=== PATIENT | female | born 2000 | race Two or more races ===

== ENCOUNTER 2024-07-21 00:56 | Emergency (ER) | payer MEDICAID, SELFPAY ==
[2024-07-21 00:56] VITALS: BMI 27.3
[2024-07-21 01:06] VITALS: BP 122/82; PULSE 92; RESP 16; TEMP 36.6; O2SAT 99
--- NOTE | 2024-07-21 01:14 | XR_ITS ---
Examination: PA lateral chest 2 views TECHNIQUE: Upright PA lateral chest 2 views Exam date and time: July 21, 2024 0123 hours INDICATIONS: Coughing beginning 3 weeks ago. FINDINGS: Normal heart size Lungs are clear. The osseous structures are intact IMPRESSION: No active disease
--- NOTE | 2024-07-21 01:14 | PD.EDURI ---
Upper Respiratory Inf. RME/HPI General Chief Complaint: Flu Like Symptoms Stated Complaint: COUGH, SIDE PAIN Time Seen by Provider: 07/21/24 01:12 Source: patient Arrival date/time: 07/21/24 00:56 23-year-old female presents emergency department complaining of cough and left rib pain that is been ongoing for 3 weeks. Mode of arrival: ambulatory Limitations: no limitations Related Data Previous Rx's ?Medication ?Instructions ?Recorded benzonatate 100 mg capsule 100 mg PO BID #20 caps 07/21/24 Allergies Allergy/AdvReac Type Severity Reaction Status Date / Time NKA Allergy Unknown Uncoded 07/21/24 00:58 Review of Systems Review of Systems Systems Reviewed: All systems reviewed, normal except as documented Constitutional Constitutional: Reports system reviewed and no additional complaints, except as documented, Denies body ache(s), Denies chills and Denies fever(s) Eyes Eyes: Reports system reviewed and no additional complaints, except as documented and Denies change in vision ENT Ears, Nose, Mouth, and Throat: Reports system reviewed and no additional complaints, except as documented, Denies disequilibrium, Denies dizziness, Denies sore throat and Denies vertigo Cardiovascular Cardiovascular: Reports system reviewed and no additional complaints, except as documented, Denies chest pain and Denies dyspnea Respiratory Respiratory: Reports system reviewed and no additional complaints, except as documented, Denies chest congestion, Reports cough and Denies dyspnea Gastrointestinal Gastrointestinal: Reports system reviewed and no additional complaints, except as documented, Denies abdominal pain, Denies nausea and Denies vomiting Musculoskeletal Musculoskeletal: Reports system reviewed and no additional complaints, except as documented, Denies abnormal gait, Denies arthralgias, Reports back pain and Reports other (Side pain) Integumentary/Breasts Skin/Breast: Reports system reviewed and no additional complaints, except as documented, Denies erythema, Denies rash and Denies wounds Neurologic Neurologic: Reports system reviewed and no additional complaints, except as documented, Denies abnormal gait, Denies disequilibrium, Denies dizziness and Denies vertigo Past Medical History Social History SMOKING STATUS: Never smoker ED Exam General Limitations: Present no limitations General appearance: Present alert and in no apparent distress Head Head exam: Present atraumatic Eye Eye exam: Present normal appearance, PERRL and EOMI ENT ENT exam: Present normal exam, normal oropharynx and mucous membranes moist Neck Neck exam: Present normal inspection, full ROM and trachea midline Chest Chest inspection: Present normal inspection and symmetric chest wall rise Respiratory Respiratory exam: Present normal lung sounds bilaterally Cardiovascular Cardiovascular exam: Present regular rate, normal rhythm and normal heart sounds Abdominal Exam Abdominal exam: Present soft and normal bowel sounds Extremities Exam Extremities exam: Present normal inspection and full ROM Back Exam Back exam: Present normal inspection and full ROM Neurological Exam Neurological exam: Present alert, oriented X3 and CN II-XII intact Psychiatric Psychiatric exam: Present normal affect and normal mood Skin Skin exam: Present warm, dry, intact and normal color Course Quality Measures none Orders Category Date Time Status Bedside Influenza A&B Antigen Test NOW Care 07/21/24 01:14 Completed XR chest 2V Stat Exams 07/21/24 01:14 Taken Vital Signs Vital signs: Vital Signs Temperature 98 F 07/21/24 01:06 Pulse Rate 92 07/21/24 01:06 Respiratory Rate 16 07/21/24 01:06 Blood Pressure 122/82 07/21/24 01:06 Pulse Oximetry (%) 99 07/21/24 01:06 Oxygen Delivery Method Room Air 07/21/24 01:06 99% room air within normal limits Upper Respiratory Infection MDM Narrative MDM Narrative:: 23-year-old female presents emergency department complaining of cough and left rib pain that is been ongoing for 3 weeks. Chest x-ray was unremarkable for any pneumonic infiltrates based on my interpretation. Influenza negative. Patient appears nontoxic and is hemodynamically stable. No adventitious lung sounds on auscultation. Vital signs within normal limits. Patient discharged to follow-up with primary care provider return to emergency department for any worsening symptoms or as needed. Patient data External records reviewed:: None Clinical information provided by:: patient and family Social determinants that could affect healthcare access:: none Patient has the following chronic illnesses:: None How is presenting disease/condition affected by chronic disease/condition?: no chronic disease Evaluation data The following diagnostics were reviewed and interpreted by me:: radiology exam(s) Lab and/or radiology exams considered but not ordered:: Ordered Interpretation Summary: Interpreted by me Medications / Prescriptions Medications or Prescriptions considered but not ordered:: N/A Medication administrations:: N/A Consultations Consultation(s) initiated? (list below): No Diagnosis Upper Respiratory Differential Diagnosis: upper respiratory infection, otitis media, sinusitis, viral infection, bronchitis, influenza and pharyngitis Most likely diagnosis given after review of the tests above:: Viral infection Admission Indicated Admission indicated?: not indicated Admission Request Was there a request for admission?: No Disposition Plan Disposition Plan: Discharge Discharge Attestation Discharge Attestation: The patient and all family members were given an opportunity to ask questions and understood the discharge instructions. Discharge instructions specifically effects, indications for sooner follow up or return to the emergency department, and the expected course of current diagnosis. Patient condition: Stable Discharge Plan Plan Patient Disposition: HOME (Self Care) Disposition Comment: Stable Prescriptions/Referrals Prescriptions/Med Rec: New benzonatate 100 mg capsule 100 mg PO BID Qty: 20 0RF Problem List Clinical Impression: Viral infection Patient/Caregiver Discharge Instructions Discharge Activity: activity as tolerated Education Materials: ED Viral Syndrome (Adult) Additional Instructions: Drink plenty of fluids and get plenty of rest. Take cough medication as needed. Follow-up with primary care provider in 2 to 3 days. Return to emergency department for any worsening symptoms or as needed. Print Language: Tajik Stand Alone Forms: Tanesha Award Info., Patient Portal Info Letter PA/YOBANY Supervising Physician MICHAEL/YOBANY Supervising Physician: Dr. Adrian
== END 2024-07-21 01:46 | disposition home or self-care (01) ==
LOC: SERX 01:36
PROVIDERS: Emergency Provider Emergency Medicine; PCP Nurse Practitioner Family
DX: B34.9 Viral infection, unspecified (principal)
CPT/HCPCS: 71046; 87400; 99283

== ENCOUNTER 2024-07-25 21:07 | Emergency (ER) | payer MEDICAID, SELFPAY ==
[2024-07-25 21:08] VITALS: BMI 27.3
[2024-07-25 21:18] VITALS: BP 131/84; PULSE 97; RESP 18; TEMP 37.1; O2SAT 99
--- NOTE | 2024-07-25 21:21 | XR_ITS ---
Examination: Ribs, left, with PA chest, 4 views Technique: Chest PA, RIBS AP, RPO, LPO, AP coned lower ribs 5 views Exam date and time: July 25, 2024 2137 hrs. Indications: Coughing 3 weeks ago with onset left rib pain Findings: Normal heart size No pneumothorax No acute rib fractures Impression: No pneumothorax pulmonary contusion or hemothorax No acute rib fractures
--- NOTE | 2024-07-25 21:21 | EDNOTE_ITS ---
ED General RME/HPI General Chief complaint: Abdominal Pain Stated complaint: LUQ PAIN X 1WK Time Seen by Provider: 07/25/24 21:21 Arrival date/time: 07/25/24 21:07 Limitations: no limitations RME / HPI RME / HPI narrative: 23yof presents to ED for left-sided rib pain x 1 week. Denies preceding injury or trauma. Patient reports persistent cough the past 3 weeks, now improving. No fever, shortness of breath, nausea/vomiting, dizziness or syncope reported. No medications or treatment since symptom onset Related Data Previous Rx's ?Medication ?Instructions ?Recorded ibuprofen 600 mg tablet 600 mg PO Q6H PRN pain #30 tabs 07/25/24 lidocaine 5 % topical patch 1 patch topical QDAY PRN pain #15 07/25/24 ea cephalexin 500 mg capsule 500 mg PO Q8H #20 caps 07/28/24 Allergies Allergy/AdvReac Type Severity Reaction Status Date / Time No Known Allergies Allergy Verified 07/28/24 08:19 Review of Systems Review of Systems Systems Reviewed: All systems reviewed, normal except as documented Constitutional Constitutional: Denies chills and Denies fever(s) ENT Ears, Nose, Mouth, and Throat: Reports nasal congestion and Denies vertigo Cardiovascular Cardiovascular: Denies chest pain, Denies dyspnea and Denies syncope Respiratory Respiratory: Reports cough, Denies dyspnea, Reports pain on inspiration and Reports pain with cough Gastrointestinal Gastrointestinal: Denies abdominal pain, Denies nausea and Denies vomiting Musculoskeletal Comments: Positive for rib pain Neurologic Neurologic: Denies syncope and Denies vertigo Past Medical History Social History SMOKING STATUS: Never smoker SUBSTANCE USE: does not use ALCOHOL: Never Past Medical History Comments PMH COMMENT: ED Exam General Limitations: Present no limitations General appearance: Present alert and in no apparent distress Head Head exam: Present atraumatic and normocephalic Eye Eye exam: Present normal appearance, PERRL and EOMI ENT ENT exam: Present normal exam and mucous membranes moist Neck Neck exam: Present normal inspection and full ROM Chest Chest inspection: Present symmetric chest wall rise and tenderness (left lower anterior ribs) Respiratory Respiratory exam: Present normal lung sounds bilaterally and other (No wheezing, rales or rhonchi); Absent respiratory distress Cardiovascular Cardiovascular exam: Present regular rate and normal rhythm Abdominal Exam Abdominal exam: Present soft; Absent distention, tenderness, guarding or rebound Extremities Exam Extremities exam: Present normal inspection and full ROM Back Exam Back exam: Absent paraspinal tenderness or vertebral tenderness Neurological Exam Neurological exam: Present alert and oriented X3 Psychiatric Psychiatric exam: Present normal affect and normal mood Skin Skin exam: Present warm, dry, intact and normal color Course Quality Measures none Orders Category Date Time Status XR ribs LT min 3V w CXR1V Stat Exams 07/25/24 21:21 Completed Ibuprofen Tab [Motrin Tab] Med 07/25/24 21:22 Discontinued 600 mg PO X1 ONE Lidocaine 5% Patch Med 07/25/24 21:22 Discontinued 1 patch TOP X1 ONE Vital Signs Vital signs: Vital Signs Temperature 98.7 F 07/25/24 21:18 Pulse Rate 97 07/25/24 21:18 Respiratory Rate 18 07/25/24 21:18 Blood Pressure 131/84 H 07/25/24 21:18 Pulse Oximetry (%) 99 07/25/24 21:18 Oxygen Delivery Method Room Air 07/25/24 21:18 [facility] Patient data External records reviewed:: [facility] previous records (07/21/24 ED visit for viral infection) Clinical information provided by:: patient Social determinants that could affect healthcare access:: none Patient has the following chronic illnesses:: HS How is presenting disease/condition affected by chronic disease/condition?: uneffected by Evaluation data The following diagnostics were reviewed and interpreted by me:: radiology exam(s) Lab and/or radiology exams considered but not ordered:: none Interpretation Summary: Rib xrays: no fx or ptx per my read Medications Medications considered but not ordered:: no antibiotics recommended at this time Medication administrations:: Medication Administration History Discontinued Medications Ibuprofen (Ibuprofen Tab 600 Mg Tablet) 600 mg PO X1 ONE Stop: 07/25/24 21:23 Last Admin: 07/25/24 21:36 Dose: 600 mg Documented By: Lidocaine (Lidocaine 5% 1 Patch) 1 patch TOP X1 ONE Stop: 07/25/24 21:23 Last Admin: 07/25/24 21:34 Dose: 1 patch Documented By: above medications administered in ED Consultations Consultation(s) initiated? (list below): No Diagnosis Differential Diagnosis ED Complaint MDM: fracture, strain, strain, msk pain, costochondritis Most likely diagnosis given after review of the tests above:: costochondritis Admission Indicated Admission indicated?: not indicated Explain why admission is indicated or not indicated:: Patient is clinically stable for outpatient mgmt Admission Request Was there a request for admission?: No Disposition Plan Disposition Plan: Discharge Discharge Attestation Discharge Attestation: The patient and all family members were given an opportunity to ask questions and understood the discharge instructions. Discharge instructions specifically effects, indications for sooner follow up or return to the emergency department, and the expected course of current diagnosis. Patient condition: Stable Medical Decision Making MDM Narrative MDM Narrative: 23yof presents to ED for left-sided rib pain x 1 week. Denies preceding injury or trauma. Patient reports persistent cough the past 3 weeks, now improving. No fever, shortness of breath, nausea/vomiting, dizziness or syncope reported. No medications or treatment since symptom onset Xryas negative for acute process. Patient is well-appearing, no evidence of respiratory distress or hypoxia. Suspect costochondritis from recent URI. Recommended ice application, motrin/tylenol prn pain. Stable for dc, RTED precautions given. Differential Diagnosis Differential Diagnosis: fracture, strain, strain, msk pain, costochondritis Discharge Plan Plan Patient Disposition: HOME (Self Care) Patient condition on transfer: Stable Prescriptions/Referrals Prescriptions/Med Rec: New ibuprofen 600 mg tablet 600 mg PO Q6H PRN (Reason: pain) Qty: 30 0RF lidocaine 5 % adhesive patch,medicated 1 patch topical QDAY PRN (Reason: pain) Qty: 15 0RF Rx Instructions: leave on most painful area for up to 12 hrs No Action cephalexin 500 mg capsule 500 mg PO Q8H Qty: 20 0RF Referrals: Temporary Provider,ED [Physician] - In 1 week Problem List Clinical Impression: Costochondritis Patient/Caregiver Discharge Instructions Education Materials: Costochondritis Additional Instructions: Your x-rays showed no rib fractures. Ibuprofen and Tylenol can be alternated every 4-6 hours as needed for pain. Ice application can also help with inflammation. Print Language: Bruneian Stand Alone Forms: Tanesha Award Info., Patient Portal Info Letter PA/WIRER PASSENGER CAR Supervising Physician PA/WIRER PASSENGER CAR Supervising Physician: Russell
[2024-07-25] MEDS: LIDOCAINE 5% 1 PATCH TOP (21:34)
[2024-07-25] MEDS: IBUPROFEN TAB 600 MG TABLET PO (21:36)
[2024-07-25 22:53] VITALS: RESP 18
== END 2024-07-25 22:55 | disposition home or self-care (01) ==
PROVIDERS: Emergency Provider Emergency Medicine; PCP Nurse Practitioner Family
DX: M94.0 Chondrocostal junction syndrome [Tietze] (principal)
CPT/HCPCS: 71101; 99283; A9270

== ENCOUNTER 2024-07-28 07:50 | Day surgery (SDC) | payer MEDICAID, SELFPAY ==
[2024-07-24 08:09] VITALS: BMI 27.8
[2024-07-24 10:04] LABS: Basophils # (Auto) 0.1 Thou/mm3 (0.0-0.2); Basophils % (Auto) 1 % (0-2.5); Eosinophils # (Auto) 0.4 Thou/mm3 (0.0-0.5); Eosinophils % (Auto) 4 % (0-10); Hematocrit 40.3 % (36.0-46.0); Hemoglobin 13.6 g/dL (12.0-16.0); Immature Granulocytes % (Auto) 0 % (0-0); Immature Granulocytes Auto 0.02 Thou/mm3 (0.00-0.00); Lymphocytes # (Auto) 2.5 Thou/mm3 (1.0-4.8); Lymphocytes % (Auto) 23 % (10-50); Mean Corpuscular HGB Conc 33.7 g/dl (31.0-37.0); Mean Corpuscular Hemoglobin 30.6 pg (25.0-35.0); Mean Corpuscular Volume 91 fL (80-100); Monocytes # (Auto) 1.1 Thou/mm3 (0.0-0.8); Monocytes % (Auto) 10 % (0-12); Neutrophils # (Auto) 6.9 Thou/mm3 (1.8-7.7); Neutrophils % (Auto) 63 % (37-80); Nucleated Red Blood Cell % 0 /100 WBC (0); Platelet Count 299 Thou/mm3 (140-440); RDW Standard Deviation 40.3 fL (36.4-46.3); Red Blood Count 4.44 Miln/mm3 (4.00-5.20); White Blood Count 10.9 Thou/mm3 (3.6-11.0)
[2024-07-24 10:11] LABS: Alanine Aminotransferase 12 U/L (10-49); Albumin, Serum 4.8 gm/dL (3.5-5.0); Albumin/Globulin Ratio 1.6 (1.2-2.2); Alkaline Phosphatase 95 U/L (46-116); Anion Gap 7 (7-16); Aspartate Amino Transferase 16 U/L (0-34); BUN/Creatinine Ratio 22 Ratio (12-20); Bilirubin,Total 0.4 mg/dL (0.3-1.2); Blood Urea Nitrogen 13 mg/dL (9-23); Calcium 9.6 mg/dL (8.3-10.6); Calcium (Corrected) 9.6 mg/dL (8.5-10.1); Carbon Dioxide 28.9 mMol/L (20.0-31.0); Chloride 103 mMol/L (98-107); Creatinine (Component) 0.6 mg/dL (0.6-1.3); Estimated Creatinine Clearance 128.7 mL/min (>60); Glucose 91 mg/dL (74-106); Osmolality,Calculated 277 (275-295); Partial Thromboplastin Time 31.1 Seconds (22.0-36.0); Prothrombin Time 10.9 Seconds (9.0-12.2); Sodium 139 mMol/L (136-145); Total Protein 7.8 gm/dL (5.7-8.2); eGFR > 60 See Note
[2024-07-24 10:14] LABS: HCG Qualitative,Urine Negative
[2024-07-28] VITALS (7 sets, daily range): BP systolic 109–155; BP diastolic 78–97; PULSE 78–100; RESP 14–20; TEMP 36.4–36.7; O2SAT 98–100; BMI 27.1
--- NOTE | 2024-07-28 11:27 | SUR.PHASEI ---
pt arrived to PACU via gurney drowsy but arouses to verbal commands, breathing unlabored, dressing to bilateral axilla clean, dry, and intact, report from Judit GAXIOLA and Dr Núñez
--- NOTE | 2024-07-28 11:39 | ESOP_ITS ---
Date of Procedure 07/28/24 Pre Op Diagnosis Bilateral hidradenitis of axilla Post Op Diagnosis Same Procedure Excision of the skin and subcutaneous tissue and primary closure of hidradenitis both axilla Findings Patient had extensive inflammation with granulation tissue underneath on the right side. This measured about 6 cm in length about 2 cm in width. So I have to remove both skin on the left side which was 3 to 4 cm in length Procedure Description After the patient was given LMA anesthesia both axilla was shaved and prepped with ChloraPrep solution and draped. Patient received 2 g of Ancef because of chronic infection. Timeout was performed. Then I started the right side which was showing a complex infection. I made an elliptical incision for about 2 cm in width and 6 cm in length and excised the anterior skin. Then I realized that the patient has considerable amount of granulation tissue underneath the subcutaneous tissue. This was removed gradually by using 15 blade knife and Allis clamp. Then the bleeding points were controlled with cautery. Then few sutures were placed in subcutaneous tissue with 3-0 chromic and then the skin was sutured with interrupted 4-0 nylon stitches. The same procedure was performed on the left side except the it showed minimal infection. There was some pus showing active infection. But this pilonidal cyst was about 3 to 4 cm in length and it was also excised and closed with a 3-0 chromic for the subcutaneous tissue and 4-0 nylon for the skin dressing was applied with Adaptic and 4 x 4 gauze. Patient tolerated. Anesthesia other Pathology / specimen Other (1. Hidradenitis right axilla, #2 hidradenitis left axilla) Estimated Blood Loss 75 Surgeon Amrit Contreras MD Surgical Staff Operation Date: 07/28/24 10:00 Case Staff Anesthesiologist: Angelo Núñez RNmeals on wheels driver: Rebecca Mejias
[2024-07-28] MEDS: ONDANSETRON INJ 2 MG/ML INJ 2 ML 4 MG IV (11:53)
--- NOTE | 2024-07-28 12:17 | SUR.PHASEII ---
pt awake, alert, able to follow commands, breathing unlabored, dressing to bilateral axilla clean, dry, and intact, discharge instructions given with sister present, pt able to dress self and ambulate to bathroom with steady gait, pt discharged via wheelchair with all belongings and copies of discharge paperwork.
== END 2024-07-28 12:17 | disposition home or self-care (01) ==
PROVIDERS: Anesthesiology; PCP Nurse Practitioner Family; Referring Provider Surgery; Visit Provider Surgery
PROC: (CPT 11450; principal; 2024-07-28 10:00)
DX: L73.2 Hidradenitis suppurativa (principal)
CPT/HCPCS: 11450; 36415; 80053; 81025; 85025; 85610; 85730; A4217; A4649; J0131; J0690; J1100; J2405; J2704; J2765; J3010; J3490; J0665